=== PATIENT | female | born 1990 | race Caucasian/White ===

== ENCOUNTER 2016-04-24 14:28 | Emergency (ER) | payer MEDICAID ==
[2016-04-24 15:57] LABS: BASOPHILS 0.1 % (0.0-2.0); EOSINOPHILS 0 % (0-7); HEMOGLOBIN 12.8 g/dL (12-16); IMMATURE GRANULOCYTES 0.5 % (0-5); LYMPHOCYTES 5.9 % (15-50); MCH 31.5 pg (26.0-34.0); MCHC 33.7 g/dL (31.0-37.0); MCV 93.6 fL (80.0-100.0); MEAN PLATELET VOLUME 9.9 fL (7.4-10.4); MONOCYTES 2.8 % (2-11); NEUTROPHILS 90.7 % (40-80); PLATELET COUNT 188 10x3/uL (130-400); RBC 4.06 10x6/uL (4.00-5.40); RDW 13.3 % (11.5-14.5); WBC 15.2 10x3/uL (4.8-10.8)
[2016-04-24 16:04] LABS: CALC OSMOLALITY 274 mosm/kg (275-300); CALCIUM 8.8 mg/dL (8.5-10.1); CARBON DIOXIDE 23.8 mmol/L (21.0-32.0); CHLORIDE - SERUM 102 mmol/L (98-107); CREATININE - SERUM 0.6 mg/dL (0.6-1.3); GLUCOSE 98 mg/dL (74-106); POTASSIUM - SERUM 3.3 mmol/L (3.5-5.1); SODIUM 138 mmol/L (136-145); UREA NITROGEN 11 mg/dL (7-18); eGFR NON AFRICAN AMERICAN > 90 mL/min (90-120)
[2016-04-24 16:58] LABS: APPEARANCE HAZY (CLEAR); BACTERIA FEW /hpf (NONE SEEN); BILIRUBIN NEGATIVE (NEGATIVE); COLOR DK YELLOW (YELLOW); GLUCOSE NEGATIVE (NEGATIVE); KETONE LARGE mg/dL (NEGATIVE); LEUKOCYTE ESTERASE NEGATIVE (NEGATIVE); MUCUS >1+ /lpf (NONE SEEN); NITRITE NEGATIVE (NEGATIVE); PROTEIN TRACE mg/dL (NEGATIVE); UROBILINOGEN NORMAL (NORMAL); WHITE CELLS - URINE 0-5 /hpf (0-5)
== END 2016-04-24 17:41 | disposition home or self-care (01) ==
LOC: D.ER 14:28
PROVIDERS: Nurse Practitioner Acute Care
DX: R11.10 Vomiting, unspecified (principal); F17.200 Nicotine dependence, unspecified, uncomplicated

== ENCOUNTER → 2016-08-11 11:24 | Outpatient (CLI) | payer MEDICAID ==
[~2016-08-11 11:24] MED LIST: PROTONIX20 MG PO
== END | disposition home or self-care (01) ==
LOC: D.LDO 11:24
DX: Z34.90 Encounter for supervision of normal pregnancy, unspecified, unspecified trimester (principal)

== ENCOUNTER → 2016-08-12 18:53 | Outpatient (CLI) | payer MEDICAID ==
[2016-08-12 19:47] LABS: APPEARANCE SLT CLOUDY (CLEAR); BILIRUBIN NEGATIVE (NEGATIVE); COLOR YELLOW (YELLOW); GLUCOSE NEGATIVE (NEGATIVE); KETONE NEGATIVE (NEGATIVE); LEUKOCYTE ESTERASE NEGATIVE (NEGATIVE); NITRITE NEGATIVE (NEGATIVE); PROTEIN NEGATIVE (NEGATIVE); UROBILINOGEN NORMAL (NORMAL)
== END | disposition home or self-care (01) ==
LOC: D.LDO 18:53
PROVIDERS: Obstetrics & Gynecology
DX: O26.899 Other specified pregnancy related conditions, unspecified trimester (principal); R10.9 Unspecified abdominal pain

== ENCOUNTER 2016-08-16 07:30 | Inpatient (IN) | payer MEDICAID ==
[~2016-08-16] VITALS: Ht 154.9 cm; Wt 62.6 kg
[2016-08-16] MEDS ORDERED: ZOFRAN ODT4 MG/UDTAB PO (10:42)
[2016-08-16] MEDS ORDERED: PHENERGAN25 M1 PO (10:42)
[2016-08-16 10:43] VITALS: BP 119/76; Ht 154.9 cm; Wt 62.6 kg
[2016-08-16 11:28] LABS: HEMATOCRIT 36.9 % (36.0-48.0); HEMOGLOBIN 12.1 g/dL (12-16); MCH 30.5 pg (26.0-34.0); MCHC 32.8 g/dL (31.0-37.0); MCV 92.9 fL (80.0-100.0); MEAN PLATELET VOLUME 10.8 fL (7.4-10.4); RBC 3.97 10x6/uL (4.00-5.40); RDW 13.6 % (11.5-14.5); WBC 14.9 10x3/uL (4.8-10.8)
--- NOTE | 2016-08-16 13:05 | NUR ---
BABY BOY BORN AT 1258 CARRIED TO [facility] BY [facility] RN AND FATHER
--- NOTE | 2016-08-16 13:48 | NUR ---
PALPATED FUNDUS FIRM AND MIDLINE
[2016-08-16 14:09] VITALS: BP 116/62
--- NOTE | 2016-08-16 14:15 | NUR ---
Received to room by bed with bedside report form Demarcus Nunez rn recovery nurse. Pt is drowsy but awakens easily, vital signs as charted on flowsheet. Fundus firm at u/2 with moderate lochia, no clots noted with massage. Underpads changed at this time. bikini incision covered with white bandage which is clean and dry. dilaudid administrative court justice started and pt demonstrates use, rates pain at 10/10, huitron cath to bedside drain with 100ml clear urine noted. SCD on and pump started. Per request assistance provided with turning to her left side. Side rails up x 2 with phone and call light in reach. family at bedside.
--- NOTE | 2016-08-16 14:48 | NUR ---
Fundus firm with massage at u/1, no clots noted and scant bleeding at this time. Ice pack provided for incision. large cup of ice water, she denies any nausea at this time.
[2016-08-16 14:56] LABS: APPEARANCE CLEAR (CLEAR); BILIRUBIN NEGATIVE (NEGATIVE); COLOR YELLOW (YELLOW); GLUCOSE NEGATIVE (NEGATIVE); KETONE NEGATIVE (NEGATIVE); LEUKOCYTE ESTERASE NEGATIVE (NEGATIVE); NITRITE NEGATIVE (NEGATIVE); PROTEIN NEGATIVE (NEGATIVE); UDS - AMPHET NEGATIVE QUAL (NEGATIVE); UDS - BARB NEGATIVE QUAL (NEGATIVE); UDS - BENZO NEGATIVE QUAL (NEGATIVE); UDS - COCAINE NEGATIVE QUAL (NEGATIVE); UDS - METH NEGATIVE QUAL (NEGATIVE); UDS - OPIATE NEGATIVE QUAL (NEGATIVE); UDS - PCP NEGATIVE QUAL (NEGATIVE); UDS - THC POSITIVE QUAL (NEGATIVE); UROBILINOGEN NORMAL (NORMAL)
--- NOTE | 2016-08-16 15:15 | NUR ---
PT more awake and has positioned self to her back with head of bed elevated. Rates pain at 5/10 at this time, fundus firm with massage at u/1, no clots noted and moderate lochia, blue chux and towels changed. and new ice pack to incision site. Questions when infant will come to room, provided with nursery number and infants nurse to that she is able to check on status. Denies any needs at this time.
--- NOTE | 2016-08-16 16:16 | NUR ---
Pt awake and watching tv, rates pain at 5/10 but states her back is bothering her more than incision site, encouraged her to try and position self off her back. Fundus firm at u/u with scant bleeidng and no clots. Able to cough x 2 with alot of encouragment, also shown how to brace abd during coughing. Call light in reach.
--- NOTE | 2016-08-16 16:45 | NUR ---
Called to room, pt complains of IV "leaking" noticable leak at connection to poker supervisor tubing. All tubing changed and pump/poker supervisor restarted. fundus firm at u/u with light to moderate bleeing without clots. in room for feeding, pt denies needs at this time.
--- NOTE | 2016-08-16 18:05 | NUR ---
PT CALLS OUT SUPERVISOR SILVERING DEPARTMENT LIGHT REQUESTING FOR ROOM TEMP TO BE LOWERED. THIS RN TO ROOM, THERMOSTAT ADJUSTED. PT ALSO REQUESTS FOR PERIPADS TO BE CHANGED AND NEW ICE PACK FOR INCISION. PERICARE DONE, BED PADS CHANGED, NEW PERIPADS PLACED. NEW ICE PACK PROVIDED. PT DENIES FURTHER NEEDS AT THIS TIME. LIGHTS IN ROOM DIMMED FOR REST, SRUx2, CL IN REACH.
[2016-08-16 18:56] LABS: MCH 29.8 pg (26.0-34.0); MCHC 32.3 g/dL (31.0-37.0); MCV 92.3 fL (80.0-100.0); MEAN PLATELET VOLUME 10.7 fL (7.4-10.4); PLATELET COUNT 188 10x3/uL (130-400); RBC 3.36 10x6/uL (4.00-5.40); RDW 13.7 % (11.5-14.5); WBC 21.4 10x3/uL (4.8-10.8)
[2016-08-16 19:10] LABS: BASOPHILS 1 % (0-2); EOSINOPHILS 4 % (0-7); LYMPHOCYTES 11 % (15-50); MONOCYTES 4 % (2-11); NEUTROPHILS 80 % (40-80); PLATELET ESTIMATE NORMAL
[2016-08-16 19:18] VITALS: BP 128/68
--- NOTE | 2016-08-16 19:18 | NUR ---
BEDSIDE REPORT REC'D FROM Arun OREILLY RN. RESUMING CARE OF THIS G3 NOW P2 FOLLOWING C/S DELIVERY BY DR. SALMON AT 1258 THIS AFTERNOON. PT REC'D IN HIGH FOWLERS POSITION WATCHING TV. PT REQUEST FOR RN TO CALL S/O, STATES THAT HE LEFT OVER 2 HOURS AGO AND SHE IS WORRIED BECAUSE HE'S NOT BACK YET. RN CALLED S/O WHO REPORTS THAT HE IS ON HIS WAY, PT NOTIFIED AND VERBALIZED RELIEF. SHIFT ASSESSMENT COMPLETED. VSS. RESPIRATIONS CLEAR TO ALL FEILDS BILATERALLY AND UNLABORED. 250 MLS CLEAR YELLOW URINE IN UROMETER EMPTIED INTO PEPE BAG. PT REPORTS THAT SHE IS PASSING FLATUS. ADB NONDISTENDED AND SOFT TO PALPATIONS. DRSG WITH LARGE AMT BRB NOTED. FUNDUS FIRM, U2 WITH MODERATE AMT RUBRA LOCHIA, NO CLOTS. SCDS ON BLE. PT REPORTS THAT PAIN IS 3/10, INCISIONAL BURNING AND STINGING AND "SOME CRAMPING." STATES THAT PAIN INCREASED TO 4/10 WITH FUNDAL CHECK, PRESSSED CAREER DEVELOPMENT ENGINEER BUTTON. BORDERED GAUZED DRSG REINFORCED WITH 4X4'S AND MEDIPORE TAPE AT THIS TIME. PT REQUESTING FOR PEPE AND PIV TO BE D/C'D AND TO GET OOB. EXPLAINED THAT ORDERS WOULD HAVE TO BE OBTAINED FROM MD AND BLEEDING WOULD HAVE TO STOP FROM INCISION, VERBALIZED UNDERSTANDING. BED PLACED IN LOW POSITION, UPPER SIDE RAILS RAISED X2, CL AND PHONE WITHIN PT REACH. PT MOVING AROUND IN BED FREELY, RN INSTRUCTED THAT UNTIL BLEEDING FROM INCISION SUBSIDED THAT SHE NEEDED TO TRY TO MAKE MINIMAL MOVEMENTS AND NEEDED ASSISTANCE WITH MAKING ANY TURNS FROM SIDE TO SIDE, PT VERBALIZED UNDERSTANDING. DR. JAFFE NOTIFIED OF ASSESSMENT FINDINGS TO DRSG AND INTERVENTIONS TAKEN. ORDERS REC'D TO REMOVE DRSG, CLEANSE INCISION WITH NS AND APPLY PRESSURE DRSG.
--- NOTE | 2016-08-16 19:36 | NUR ---
DRSG REMOVED. INCISION WELL APPROXIMATED WITH NIKHIL INTACT. BRB NOTED TO BE OOZING FROM LEFT END AND MID INCISION AREA. CLEANSED WITH NS, ABD PAD AND 10 4X4'S APPLIED OVER ABD PAD, PRESSURE APPLIED TO DRSG USING MEDIPORE TAPE. EXPLAINED TO PT NEED FOR PRESSURE DRSG AND EDUCATED TO S/S OF INFECTION AND INCISIONAL CARE WHEN SHOWERING, VERBALIZE UNDERSTANDING. INSTRUCTED TO NOTIFY RN IS SHE FELT MOISTURE TO DRSG, VERBALIZED UNDERSTANDING. ICE PACK APPLIED. WILL CONT TO MONITOR AND ASSIST PRN.
--- NOTE | 2016-08-16 20:04 | NUR ---
DRSG REMAINS CLEAN, DRY, AND INTACT WITH NO DRAINAGE NOTED TO NEW DRSG. WILL CONT TO MONITOR. S/O BACK AT BEDSIDE CONVERSING WITH PT AT THIS TIME. PT DENIES NEEDS. S/O BONDING WITH INFANT. PT MOVING LEGS UP AND DOWN IN BED, ENCOURAGED TO KEEP LEGS STILL. PT STATES THAT SCDS "ARE DRIVING ME CRAZY." SCD'S REMOVED PER PT REQUEST. BED IN LOW POSITION WITH UPPER SIDE RAILS RAISED X2. CL AND PHONE WITHIN REACH. WILL CONT TO MONITOR AND ASSIST PRN.
--- NOTE | 2016-08-16 20:16 | NUR ---
DRSG REMAINS CLEAN, DRY, AND INTACT WITH NO DRAINAGE.
--- NOTE | 2016-08-16 21:06 | NUR ---
DRSG REMAINS CLEAN, DRY, AND INTACT. NO DRAINAGE NOTED TO DRSG AT THIS TIME.
--- NOTE | 2016-08-16 21:55 | NUR ---
NEW BAG NS WITH 20 UNITS PIT HUNG AT 125 MLS/HR. DRSG REMAINS CLEAN, DRY, AND INTACT WITH NO DRAINAGE. PT IN HIGH FOWLERS POSITION BREAST FEEDING AT THIS TIME. WILL CONT MONITOR AND ASSIST PRN. S/O REMAINS AT BEDSIDE. PT ASK AGAIN ABOUT GETTING PEPE AND PIV TAKE OUT. RN EXPLAINED THAT MD HAS TO PROVIDE ORDERS AND BEFORE ORDERS WILL BE GIVEN NO BLEEDING FROM INCISION CAN BE PRESENT. PT STATES THAT SHE WANTS IT ALL OUT SO THAT SHE CAN GO SMOKE. RN EXPLAINED SMOKING POLICY TO PT, AND THAT EVEN WHEN EVERYTHING IS D/C'D SHE CAN'T LEAVE THE UNIT, AND WILL NEED ASSISTANCE AMBULATING THE FIRST COUPLE OF TIMES OOB TO ASSESS FOR STEADY GAIT. PT ASKS S/O FOR DIP AT THIS TIME AND S/O STATES THAT HE DOESN'T HAVE ANY. PT SIGHS AND PUTS HEAD BACK ON HER PILLOW SHAKING HER HEAD. WILL CONT TO MONITOR AND ASSIST PRN.
[2016-08-16 22:34] VITALS: BP 133/74
--- NOTE | 2016-08-16 22:34 | NUR ---
RN TO BEDSIDE. PT CONTINUES TO BREAST FEED . S/O AT BEDSIDE, SUPPORTIVE OF PT. PT CONTINUES TO REQUEST PIV AND PEPE BE D/C'D PHILIPP. DRSG TO ABD REMAINS CLEAN, DRY, AND INTACT WITH NO DRAINAGE NOTED. FUNDUS FIRM, U1, GUSH OF LOCHIA NOTED WITH FUNDAL RUB NO CLOTS PRESENT.
--- NOTE | 2016-08-16 22:41 | NUR ---
DR. JAFFE NOTIFIED REGARDING PT REQUEST FOR MY AND LYN TO BE D/C'D. ASSESSMENT FINDINGS AND V/S REPORTED TO . ORDERS REC'D TO D/C MY AND FRANKY NICHOLSON.
--- NOTE | 2016-08-16 22:50 | NUR ---
PT UPDATED ON PLAN OF CARE AND AGREEABLE. PEPE D/C'D AND PIV SALINE LOCKED. FOLLOWING PEPE REMOVAL PT STATES THAT SHE FEELS THE URGE TO VOID, ASSISTED TO BATHROOM. PT DENIES DIZZINESS LIGHTHEADEDNED. PT UNABLE TO VOID, 2 HALF DOLLAR SIZED CLOTS PRESENT IN HAT. PT BACK TO BED. VSS. B/P 128/72 HR: 81. PT CONTINUES TO DENY FEELING LIGHTHEADED OR DIZZY. PT UNABLE TO VOID AT THIS TIME. S/O REMAINS AT BEDSIDE. INSTRUCTED PT NOT TO GET UP WITHOUT CALLING RN, VERBALIZED UNDERSTANDING. BED IN LOW POSITION, WITH UPPER SIDE RAILS RAISED X2. CL AND PHONE WITHIN REACH. 6 MLS HYDROMORPHONE WASTED FROM REPRODUCER, 185 MLS CLEAR YELLOW URINE EMPTIED FROM HAT. WILL CONT TO MONITOR AND ASSIST PRN.
--- NOTE | 2016-08-16 23:08 | NUR ---
S/O TO DESK, ASKS IF PT CAN PUT ON HER OWN CLOTHES NOW. RN EXPLAINED THAT SHE COULD, S/O ESCORTED OUT TO ER TO GO TO CAR TO GET BELONGINGS.
--- NOTE | 2016-08-16 23:31 | NUR ---
RN TO BEDSIDE. PT UP INDEPENDENTLY TO DRESS. PERICARE DONE BY PT, DENIES NEED FOR ASSISTANCE. DISPOSABLE PANTIES AND CLEAN PERIPAD GIVEN. LINENS AND CHUX CHANGED. PT DRESSED INDEPENDENTLY. RATES PAIN 4/10, DENIES NEED FOR PAIN MEDICATION AT THIS TIME. BACK TO BED. DENIES DIZZINESS OR LIGHTHEADEDNESS. VSS. B/P: 133/74, HR: 83, RESPIRATIONS: 17. ICE CHIPS GIVEN FOR SODA. INSTRUCTED TO USE CL FOR ASSISTANCE OOB, VERBALIZED UNDERSTANDING. S/O AT BEDSIDE AND SUPPORTIVE OF PT. BED IN LOW POSITION WITH UPPER SIDE RAILS RAISED X2. CL AND PHONE WITHIN PT REACH. WILL CONT TO MONITOR AND ASSIST PRN.
--- NOTE | 2016-08-16 23:45 | NUR ---
SLEEPING BABY TO [facility] PER Vazquez SHI RN. DAYANARA PECK
--- NOTE | 2016-08-16 23:45 | NUR ---
NB BACK TO NBN BY RN PER PT REQUEST. PT REQUESTS TO WALK AROUND UNIT. STATES THAT S/O WILL GO WITH HER AND SHE WILL NOTIFY RN IF ASSISTANCE IS NEEDED. PT UP TO AMBULATE. WILL CONT TO MONITOR AND ASSIST PRN. REINFORCED WITH PT TO NOTIFY RN WHEN SHE VOIDED VOIDS HAD TO BE MEASURED, VOICED UNDERSTANDING.
--- NOTE | 2016-08-17 00:12 | NUR ---
PT AND S/O BACK TO ROOM. PT RESTING IN BED. DENIES NEED FOR PAIN MEDICATIONS AT THIS TIME. STATES PAIN 3-410, "MAINLY CRAMPING AND A LITTLE BURNING AROUND THE INCISION." DRSG REMAINS CLEAN, DRY, AND INTACT WITH NO DRAINAGE NOTED. DENIES NEEDS AT THIS TIME. ENCOURAGED TO REST. BED IN LOW POSITION WITH UPPER SIDE RAILS RAISED X2. CL AND PHONE WITHIN REACH. WILL CONT TO MONITOR AND ASSIST PRN.
--- NOTE | 2016-08-17 01:03 | NUR ---
DRSG REMAINS CLEAN, DRY, AND INTACT. NO DRAINAGE PRESENT. WILL CONT TO MONITOR.
[2016-08-17 02:04] VITALS: BP 128/68
--- NOTE | 2016-08-17 02:06 | NUR ---
ROUNDS MADE. PT REPORTS THAT PAIN IS 7/10 ADB CRAMPING AND BURNING/STINGING TO INCISION. PERCOCET GIVEN PER ORDERS. VSS. FUNDUS FIRM U2 WITH SMALL AMT RUBRA LOCHIA. PT REPORTS THAT SHE VOIDED, 200 MLS NOTED IN HAT. PT STATEST THAT SHE CHANGED PERIPAD WITH VOID, MODERATE AMT RUBRA LOCHIA NOTED TO PREVIOUS PERIPAD. EDUCATED ON PERCOCET, DENIES QUESTIONS. S/O REMAINS AT BEDSIDE. BED IN LOW POSITION WITH UPPER SIDE RAILS RAISED X2. CL AND PHONE WITHIN REACH. WILL CONT TO MONITOR AND ASSIST PRN.
--- NOTE | 2016-08-17 02:36 | NUR ---
EXTRA BLANKET GIVEN PER REQUEST. PAIN REASSESSMENT COMPLETED, 05/24. DENIES ADDITIONAL NEEDS. S/O REMAINS AT BEDSIDE. BED IN LOW POSITION WITH UPPER SIDE RAILS RAISED X2. CL AND PHONE WITHIN REACH. WILL CONT TO MONITOR AND ASSIST PRN.
--- NOTE | 2016-08-17 03:22 | NUR ---
PT AMBULATORY TO DESK, REPORTS TO RN THAT SHE VOIDED. 700 MLS EMPTIED OUT OF HAT. STATES THAT PAIN IS DULL ACHE TO INCISION. DENIES NEED FOR ADDITIONAL INTERVENTION. S/O REMAINS AT BEDSIDE. SUPPORTIVE OF PT. BED REMAINS IN LOW POSITION WITH UPPER SIDE RAILS X2. CL AND PHONE WITHIN REACH. WILL CONT TO MONITOR AND ASSIST PRN.
--- NOTE | 2016-08-17 04:40 | NUR ---
RN TO BEDSIDE FOR ROUNDS. PT RESTING WITH EYES CLOSED ON RT SIDE. RESPIRATION REGULAR AND UNLABORED. NO S/S OF DISTRESS NOTED. S/O SLEEPING ON COUCH AT BEDSIDE. BED IN LOW POSITION WITH UPPER SIDE RAILS RAISED X2. CL AND PHONE WITHIN REACH. WILL CONT TO MONITOR AND ASSIST PRN.
[2016-08-17 06:11] LABS: RAPID PLASMA REAGIN Non Reactive (Non Reactive)
--- NOTE | 2016-08-17 06:21 | NUR ---
RN TO BEDSIDE. PT RESTING ON RIGHT SIDE WITH EYES CLOSED. PT AWAKENED FOR V/S. VSS. UP TO VOID AND BACK TO BED. VSS. FUNDUS REMAINS FIRM, U2 WITH SMALL AMT RUBRA LOCHIA, NO CLOTS PRESENT. RATES PAIN 4/10 FOLLOWING FUNDAL CHECK, DISCUSSED PAIN MEDICATION OPTIONS, OPTS FOR 50 MG DEMEROL, SIDE EFFECTS DISCUSSED, VERBALIZED UNDERSTANDING, DENIES QUESTIONS. S/O ON COUCH IN ROOM SLEEPING. BROUGHT TO ROOM BY NBN FOR FEEDING. INFANT HANDED TO PT BY RN. DENIES ADDITIONAL NEEDS. BED IN LOW POSITION WITH UPPER SIDE RAILS RAISED X2. CL AND PHONE WITHIN REACH. WILL CONT TO MONITOR AND ASSIST PRN.
[2016-08-17 07:12] VITALS: BP 131/74
--- NOTE | 2016-08-17 07:12 | NUR ---
RECEIVED PT SITTING UP IN BED. HOLDS INFANT WITH MUCH WARMTH SHOWN. AAO X 3. VSS. HRRR WITHOUT AUDIBLE MURMUR. BBS CLEAR. BS X 4. ABDOMEN SOFT/NON-DISTENDED. ABDOMINAL DRESSING DRY WITHOUT DRAINAGE NOTED. FUNDUS FIRM AT U/U. RUBRA LOCHIA SMALL AMT. NEG HOMANS' SIGN. PPP. NO EDEMA NOTED TO BLE. PT DENIES C/O OR NEEDS. SR UPX2. CALL LIGHT IN REACH.
[2016-08-17 07:13] LABS: BASOPHILS 0.2 % (0-2); EOSINOPHILS 0.6 % (0-7); HEMATOCRIT 28.9 % (36.0-48.0); HEMOGLOBIN 9.7 g/dL (12-16); IMMATURE GRANULOCYTES 0.9 % (0-5); LYMPHOCYTES 13.9 % (15-50); MCH 30.7 pg (26.0-34.0); MCHC 33.6 g/dL (31.0-37.0); MCV 91.5 fL (80.0-100.0); MEAN PLATELET VOLUME 10.3 fL (7.4-10.4); MONOCYTES 5.5 % (2-11); NEUTROPHILS 78.9 % (40-80); PLATELET COUNT 208 10x3/uL (130-400); RBC 3.16 10x6/uL (4.00-5.40); RDW 13.5 % (11.5-14.5); WBC 16.3 10x3/uL (4.8-10.8)
[2016-08-17 07:32] VITALS: BP 112/75
--- NOTE | 2016-08-17 08:15 | NUR ---
INFANT RETURNED TO [facility] AT PATIENT'S REQUEST. PT AND SO AMBULATE IN HALLS.
--- NOTE | 2016-08-17 08:30 | NUR ---
PT AND SO AMBULATE BACK TO ROOM AT THIS TIME. NO C/O VOICED.
--- NOTE | 2016-08-17 09:24 | NUR ---
PT C/O INCISIONAL PAIN OF "5" ON 0-10 PAIN SCALE. IBUPROFEN 600 MG GIVEN PO ORDERED.
--- NOTE | 2016-08-17 10:15 | NUR ---
DR AJFFE VISITS WITH PT. NEW ORDERS RECEIVED.
[2016-08-17] MEDS ORDERED: MEPERIDINE HCL50 MG PO (10:36)
[2016-08-17] MEDS ORDERED: IBUPROFEN600 MG PO (10:37)
--- NOTE | 2016-08-17 11:00 | NUR ---
DISCHARGE INSTRUCTIONS GIVEN TO PT. PT VERBALIZES UNDERSTANDING OF ALL INSTRUCTIONS. COPIES GIVEN TO PT. RX FOR IBUPROFEN AND DEMEROL GIVEN TO PT. SL DC'D WITH CATHELON INTACT. PRESSURE BANDAGE TO SITE.
--- NOTE | 2016-08-17 11:15 | NUR ---
PT C/O INCISIONAL PAIN OF "5" ON 0-10 PAIN SCALE. DEMEROL 50 MG GIVEN PO ORDERED. PT INSTRUCTED ON MED. VERBALIZES UNDERSTANDING.
--- NOTE | 2016-08-17 13:15 | NUR ---
PT AMBULATORY IN HALLS WITH SO. DENIES C/O OR NEEDS.
--- NOTE | 2016-08-17 15:19 | NUR ---
PT C/O HEADACHE OF "10" ON 0-10 PAIN SCALE. MOTRIN 600 MG GIVEN PO ORDERED. PT INSTRUCTED ON MED. VERBALIZES UNDERSTANDING.
--- NOTE | 2016-08-17 16:10 | NUR ---
PT READY FOR DISCHARGE. DISCHARGED WITH INFANT VIA WHEELCHAIR TO PRIVATE VEHICLE. PT AND LOLLY WELL.
== END 2016-08-17 16:10 | disposition home or self-care (01) | DRG 765 ==
LOC: D.LD 07:30
PROVIDERS: ADMIT Obstetrics & Gynecology
PROC: 10D00Z1 Extraction of Products of Conception, Low, Open Approach (ICD-10-PCS; principal; 2016-08-16 07:30)
DX: O98.32 Other infections with a predominantly sexual mode of transmission complicating childbirth (principal); O99.324 Drug use complicating childbirth; A56.8 Sexually transmitted chlamydial infection of other sites; Z3A.39 39 weeks gestation of pregnancy; Z37.0 Single live birth; O99.334 Smoking (tobacco) complicating childbirth; O99.344 Other mental disorders complicating childbirth; F41.8 Other specified anxiety disorders; F12.90 Cannabis use, unspecified, uncomplicated; O26.893 Other specified pregnancy related conditions, third trimester; Z67.91 Unspecified blood type, Rh negative

== ENCOUNTER 2016-08-20 11:38 | Emergency (ER) | payer MEDICAID ==
[2016-08-16 10:43] VITALS: BMI 26.1
[~2016-08-20 11:38] MED LIST changes: +IBUPROFEN600 MG PO; +MEPERIDINE HCL50 MG PO; +PHENERGAN25 M1 PO; +ZOFRAN ODT4 MG/UDTAB PO
[2016-08-20 12:18] LABS: BASOPHILS 0.2 % (0-2); EOSINOPHILS 2.7 % (0-7); HEMATOCRIT 29.4 % (36.0-48.0); HEMOGLOBIN 9.5 g/dL (12-16); IMMATURE GRANULOCYTES 1.2 % (0-5); MCH 30.1 pg (26.0-34.0); MCHC 32.3 g/dL (31.0-37.0); MEAN PLATELET VOLUME 9.2 fL (7.4-10.4); NEUTROPHILS 75.9 % (40-80); PLATELET COUNT 258 10x3/uL (130-400); RBC 3.16 10x6/uL (4.00-5.40); RDW 13.4 % (11.5-14.5); WBC 12.3 10x3/uL (4.8-10.8)
[2016-08-20 12:37] LABS: INR 0.98 (0.85-1.17); PROTIME 12.8 SECONDS (11.6-15.0)
[2016-08-20 12:44] LABS: ALBUMIN 2.5 g/dL (3.4-5.0); ALKALINE PHOSPHATASE 100 U/L (46-116); ALT (SGPT) 28 U/L (10-68); BILIRUBIN - TOTAL 0.34 mg/dL (0.2-1.3); CALC OSMOLALITY 278 mosm/kg (275-300); CALCIUM 8.4 mg/dL (8.5-10.1); CARBON DIOXIDE 25.8 mmol/L (21.0-32.0); CHLORIDE - SERUM 104 mmol/L (98-107); CREATININE - SERUM 0.7 mg/dL (0.6-1.3); GLUCOSE 82 mg/dL (74-106); POTASSIUM - SERUM 3.8 mmol/L (3.5-5.1); PROTEIN - SERUM 6.6 g/dL (6.4-8.2); SODIUM 141 mmol/L (136-145); UREA NITROGEN 11 mg/dL (7-18); eGFR NON AFRICAN AMERICAN > 90 mL/min (90-120)
== END 2016-08-20 15:22 | disposition home or self-care (01) ==
LOC: D.ER 11:38
PROVIDERS: Nurse Practitioner Family
DX: T88.59XA Other complications of anesthesia, initial encounter (principal); G44.40 Drug-induced headache, not elsewhere classified, not intractable

== ENCOUNTER 2019-09-27 13:03 | Emergency (ER) | payer OTHER ==
[~2019-09-27] VITALS: Ht 154.9 cm; Wt 59.1 kg
[2019-09-27 13:35] VITALS: BP 127/65; Ht 154.9 cm; Wt 59.1 kg
[2019-09-27] MEDS ORDERED: PRENAVITE1 TAB PO (13:37)
[2019-09-27] MEDS ORDERED: KLONOPIN0.5 MG PO (13:37)
== END 2019-09-27 14:22 | disposition home or self-care (01) ==
LOC: D.ER 13:03
DX: L03.114 Cellulitis of left upper limb (principal); M54.2 Cervicalgia; F32.9 Major depressive disorder, single episode, unspecified